=== PATIENT | male | born 1945 | race Caucasian/White ===

== ENCOUNTER 2017-06-10 21:41 | Observation (INO) | payer MEDICARE, OTHER ==
[~2017-06-10] VITALS: Ht 167.6 cm; Wt 83.2 kg
[~2017-06-10 21:41] MED LIST: ATOR40TA16 PO; GABA100C4 PO; GLIP5TAB8 PO; LEVA500T33 PO; LISI-519 PO; METF1000 PO; METO25TA3 PO; TERA2CAP3 PO
[2017-06-10 23:30] VITALS: BP 114/69; PULSE 73; RESP 20; TEMP 96.9; O2SAT 98
[2017-06-11] VITALS (10 sets, daily range): BP systolic 97–129; BP diastolic 59–78; PULSE 62–85; RESP 16–18; TEMP 97.9–98.6; O2SAT 96–100
[2017-06-11] MEDS ORDERED: SODIUM CHLORIDE FLUSH PRN IV FLUSH (00:15)
[2017-06-11] MEDS ORDERED: ONDANSETRON HCL 4 MG/2 ML VIAL IV PUSH PRN (00:15)
[2017-06-11] MEDS ORDERED: ACETAMINOPHEN 500 MG CPLT PO PRN (00:15)
[2017-06-11 00:37] LABS: TROPONIN I LESS THAN 0.02 NG/ML (0.02-0.05)
[2017-06-11] MEDS ORDERED: SODIUM CHLOR 0.9% 1000 ML INJ 1,000 ML IV SCH ×3 (08:00→16:07)
--- NOTE | 2017-06-11 08:10 | HHI.HP ---
HPI Primary Care Physician Unknown Chief Complaint Chest pain History of Present Illness This is a 72-year-old male with history of CAD with stents of the circumflex, hypertension, hyperlipidemia, and diabetes that presents to ED in [place] to be evaluated for chest discomfort and then was subsequently transferred via [facility] to the chest pain center. Describes a central chest pressure that radiates into his neck and arm that is brought on with activity lasting anywhere from a few minutes to about 20 minutes. The discomfort is relieved when he takes nitroglycerin or stopping the activity. He also has associated shortness of breath. Denies nausea or diaphoresis. States the discomfort that is brought on a similar to discomfort that has led to prior cardiac stenting. Currently denies chest discomfort. Has a psychology technician in [facility] and has an appointment end of the week. Upon reviewing her records, patient had a cardiac catheterization in 2013 revealed a 99% in-stent restenosis of the circumflex stent and had a another stent placed. Denies recent illness. Denies fevers or chills. Review of Systems General: Patient denies fevers, chills recent, and recent travel HEENT: Patient denies headache, sore throat, difficulty swallowing. Cardiovascular: Has the chest discomfort as mentioned above. Denies sensation of heart beating rapidly or irregularly. No syncope. Denies diaphoresis. Respiratory: He has been short of breath. Denies inspirational chest discomfort. Denies coughing wheezing or hemoptysis. GI: Patient denies nausea, vomiting, diarrhea, abdominal pain, bloody stools. Musculoskeletal: Patient denies joint pain or edema. Denies calf pain or edema. Neurovascular: Patient denies numbness, tingling, weakness in extremities. Denies headache. Endocrine: Denies polyuria and polydipsia. Hematologic: Denies easy bruising. Skin: Denies rash or itching. Past Family Social History Allergies: Coded Allergies: penicillin G (Unverified Allergy, Severe, Anaphylaxis, 06/10/17) Past Medical History CAD with stents. Hypertension, hyperlipidemia, and diabetes. Past Surgical History Heart catheterizations. He has had stents. Reported Medications Reported Meds & Active Scripts Active Reported Gabapentin 100 Mg Cap 100 Mg PO BID Terazosin (Terazosin HCl) 2 Mg Cap 2 Mg PO HS Metoprolol Tartrate 25 Mg Tab 25 Mg PO BID Lisinopril 5 Mg Tab 5 Mg PO DAILY Atorvastatin (Atorvastatin Calcium) 40 Mg Tab 40 Mg PO HS Glipizide 5 Mg Tab 5 Mg PO DAILY Take 30 minutes before a meal Metformin (Metformin HCl) 1,000 Mg Tab 1,000 Mg PO BIDPC Active Ordered Medications Current Medications Medications (Trade) Dose Ordered Sig/Hernan Route Start Time Stop Time Status Last Admin (Tylenol) 500 mg Q4H PRN PO 06/11/17 00:15 (Zofran Inj) 4 mg Q6H PRN IV PUSH 06/11/17 00:15 (NS Flush) 2 ml BID IV FLUSH 06/11/17 09:00 (NS Flush) 2 ml UNSCH PRN IV FLUSH 06/11/17 00:15 (Lipitor) 40 mg HS PO 06/11/17 21:00 UNV (Neurontin) 100 mg BID PO 06/11/17 09:00 UNV (Prinivil) 5 mg DAILY PO 06/11/17 09:00 UNV (Lopressor) 25 mg BID PO 06/11/17 09:00 UNV (Hytrin) 2 mg HS PO 06/11/17 21:00 UNV Family History There is family history of CAD. Social History Quit smoking in 2008. Denies alcohol or illicit drug use. Physical Exam Vital Signs Vital Signs Date Time Temp Pulse Resp B/P (MAP) Pulse Ox O2 Delivery O2 Flow Rate FiO2 06/11/17 07:45 98.6 77 16 100/61 (74) 98 06/11/17 05:00 97.9 70 16 97/59 (72) 96 06/11/17 00:00 74 06/11/17 00:00 18 06/10/17 23:30 96.9 73 20 114/69 (84) 98 Physical Exam GENERAL: This is a well-nourished, well-developed patient, in no apparent distress. Patient speaks in clear complete sentences. Patient is pleasant. HEENT: Head is atraumatic and normocephalic. Neck is supple without lymphadenopathy and trachea is midline. No JVD or carotid bruits. CARDIOVASCULAR: Regular rate and rhythm without murmurs, gallops, or rubs. RESPIRATORY: Clear to auscultation. Breath sounds equal bilaterally. No wheezes , rales, or rhonchi. Chest wall is nontender. No use of accessory muscles. GASTROINTESTINAL: Abdomen is nontender, nondistended. Abdomen soft. No obvious pulsatile mass or bruit. No CVA tenderness. Strong femoral pulses bilaterally. Normal bowel sounds in all quadrants. MUSCULOSKELETAL: Patient is moving upper and lower extremities freely. No calf tenderness or edema, no Homans sign. Strong pulses in upper and lower extremities. NEUROLOGICAL: Patient is alert and oriented. Cranial nerves 2-12 are grossly intact. No focal deficits and speech is clear. SKIN: No rash and turgor is normal. Laboratory Laboratory Tests Test 06/11/17 00:01 06/11/17 03:00 Total Creatine Kinase 130 Creatine Kinase MB 0.8 Troponin I LESS THAN 0.02 LESS THAN 0.02 Imaging Chest x-ray reveals nothing acute. Course EKGs are sinus rhythm with right bundle branch block. There are Q waves. Caprini VTE Risk Assessment Caprini VTE Risk Assessment: Mod/High Risk (score >= 2) Caprini Risk Assessment Model Point Value = 1 Point Value = 2 Point Value = 3 Point Value = 5 Age 41-60 Minor surgery BMI > 25 kg/m2 Swollen legs Varicose veins or History of unexplained or recurrent spontaneous Oral contraceptives or hormone replacement Sepsis (< 1 month) Serious lung disease, including pneumonia (< 1 month) Abnormal pulmonary function Acute myocardial infarction Congestive heart failure (< 1 month) History of inflammatory bowel disease Medical patient at bed rest Age 61-74 Arthroscopic surgery Major open surgery (> 45 min) Laparoscopic surgery (> 45 min) Malignancy Confined to bed (> 72 hours) Immobilizing plaster cast Central venous access Age >= 75 History of VTE Family history of VTE Factor V Leiden Prothrombin [id number] Lupus anticoagulant Anticardiolipin antibodies Elevated serum homocysteine Heparin-induced thrombocytopenia Other congenital or acquired thrombophilia Stroke (< 1 month) Elective arthroplasty Hip, pelvis, or leg fracture Acute spinal cord injury (< 1 month) Prophylaxis Regimen Total Risk Factor Score Risk Level Prophylaxis Regimen 0-1 Low Early ambulation 2 Moderate Order ONE of the following: *Sequential Compression Device (SCD) *Heparin 5000 units SQ BID 3-4 Higher Order ONE of the following medications: *Heparin 5000 units SQ TID *Enoxaparin/Lovenox 40 mg SQ daily (WT < 150 kg, CrCl > 30 mL/min) *Enoxaparin/Lovenox 30 mg SQ daily (WT < 150 kg, CrCl > 10-29 mL/min) *Enoxaparin/Lovenox 30 mg SQ BID (WT < 150 kg, CrCl > 30 mL/min) AND/OR *Sequential Compression Device (SCD) 5 or more Highest Order ONE of the following medications: *Heparin 5000 units SQ TID (Preferred with Epidurals) *Enoxaparin/Lovenox 40 mg SQ daily (WT < 150 kg, CrCl > 30 mL/min) *Enoxaparin/Lovenox 30 mg SQ daily (WT < 150 kg, CrCl > 10-29 mL/min) *Enoxaparin/Lovenox 30 mg SQ BID (WT < 150 kg, CrCl > 30 mL/min) AND *Sequential Compression Device (SCD) Assessment and Plan Assessment and Plan * Chest pain: Patient had serial cardiac enzymes and EKGs for ruling out purposes. He was seen by Dr. Butch Hopkins of cardiology in the chest pain center. His story is concerning for ischemia and subsequent his mission will be changed. Patient was admitted to [facility] services and a consult to Dr. Hood has been requested. I discussed this with Dr. Hood. He will be evaluating the patient shortly. Likely having cardiac catheterization but might not be today. We will resume his medications. * CAD: Patient has history of CAD with stents. This will be reevaluated likely cardiac catheterization performed by Dr. Hood. * Hypertension: Resume medication. * Hyperlipidemia: Resume medication. * Diabetes: Patient will be on sliding scale insulin coverage. Follow diabetic diet. Resume medication after discharge. Will need to hold metformin for 2 days after getting IV contrast. Patient is agreeable to this plan. Antonio Flores Jun 11, 2017 08:10
[2017-06-11] MEDS ORDERED: DEXTROSE 50% IN WATER 50 ML VIAL(D50) IV PUSH PRN (08:15)
[2017-06-11] MEDS ORDERED: GLUCAGON 1 MG/ML VIAL OTHER PRN (08:15)
--- NOTE | 2017-06-11 08:46 | HHI.PR ---
Subjective Remarks in no acute distress. no chest pain or sob. Objective Vitals Vital Signs Date Time Temp Pulse Resp B/P (MAP) Pulse Ox O2 Delivery O2 Flow Rate FiO2 06/11/17 07:45 98.6 77 16 100/61 (74) 98 06/11/17 05:00 97.9 70 16 97/59 (72) 96 06/11/17 00:00 74 06/11/17 00:00 18 06/10/17 23:30 96.9 73 20 114/69 (84) 98 Objective Remarks GENERAL: This is a well-nourished, well-developed patient, in no apparent distress. CARDIOVASCULAR: Regular rate and regular rhythm without murmurs, gallops, or rubs. RESPIRATORY: Clear to auscultation. Breath sounds equal bilaterally. No wheezes , rales, or rhonchi. GASTROINTESTINAL: Abdomen soft, non-tender, nondistended. Normal, active bowel sounds MUSCULOSKELETAL: Extremities without clubbing, cyanosis, or edema. NEURO: Alert & Oriented x4 to person, place, time, situation. Moves all ext x4 Medications and IVs Inpatient Medications Acetaminophen (Tylenol) 500 mg Q4H PRN PO HEADACHE; Start 06/11/17 at 00:15 Aspirin (Aspirin) 325 mg DAILY PO ; Start 06/11/17 at 08:00 Atorvastatin Calcium (Lipitor) 40 mg HS PO ; Start 06/11/17 at 21:00 Dextrose (D50w (Vial) Inj) 50 ml UNSCH PRN IV PUSH HYPOGLYCEMIA-SEE COMMENTS; Start 06/11/17 at 08:15 Gabapentin (Neurontin) 100 mg BID PO ; Start 06/11/17 at 09:00 Glucagon (Glucagon Inj) 1 mg UNSCH PRN OTHER HYPOGLYCEMIA-SEE COMMENTS; Start 06/11/17 at 08:15 Insulin Aspart (NovoLOG SUPPLEMENTAL SCALE) 1 ACHS SLIDING SCALE SQ ; Start at 12:00 Lisinopril (Prinivil) 5 mg DAILY PO ; Start 06/11/17 at 09:00 Metoprolol Tartrate (Lopressor) 25 mg BID PO ; Start 06/11/17 at 09:00 Ondansetron HCl (Zofran Inj) 4 mg Q6H PRN IV PUSH NAUSEA; Start 06/11/17 at 00: 15 Sodium Chloride 1,000 ml @ 100 mls/hr Q10H IV ; Start 06/11/17 at 08:00; Stop 06/11/17 at 17:59 Sodium Chloride (NS Flush) 2 ml UNSCH PRN IV FLUSH FLUSH AFTER USING IV ACCESS ; Start 06/11/17 at 00:15 Terazosin HCl (Hytrin) 2 mg HS PO ; Start 06/11/17 at 21:00 A/P Assessment and Plan A/P - chest pain with history of CAD/ stent placement serial troponin negative- continue aspirin, BB and statin- cardiology consulted. -diabetes mellitus; hold oral hypoglycemics- on accu-check with [facility]SI Discharge Planning awaiting cardiology evaluation. Shemar Meza MD Jun 11, 2017 08:46
[2017-06-11] MEDS ORDERED: diphenhydrAMINE HCL 50 MG CAP PO SCH (09:00)
[2017-06-11] MEDS: ASPIRIN 325 MG TAB PO SCH ×2 (09:00→09:47)
[2017-06-11] MEDS ORDERED: DIAZEPAM 10 MG TAB PO SCH (09:00)
[2017-06-11] MEDS: LISINOPRIL 5 MG TAB PO SCH (09:00)
[2017-06-11] MEDS ORDERED: MIDAZOLAM HCL 2 MG/2 ML VIAL IV PUSH SCH (09:00)
--- NOTE | 2017-06-11 09:13 | MB ---
cc: Garth Hood MD DATE: 06/11/2017 REASON FOR CONSULTATION: Unstable angina. HISTORY OF PRESENT ILLNESS: The patient is a 72-year-old white male with a history of coronary artery disease, status post stenting in 2010 apparently of the left circumflex with repeat stenting in 2013 of the same vessel, history of diabetes, hypertension and hyperlipidemia, who was in his usual state of health up until 1 week ago when he began to experience intermittent episodes of left-sided and substernal chest discomfort described as "pressure" associated with shortness of breath. The episodes have lasted only a few minutes. He became especially concerned last night as he had to take more than 1 sublingual nitroglycerin for relief. Since coming into the hospital he has had brief twinges. He denies pleurisy, dizziness, syncope, near syncope, palpitations, pedal edema, paroxysmal nocturnal dyspnea. The patient follows with a elevator mechanic apprentice in to [place]. PAST MEDICAL HISTORY: 1. Coronary artery disease status post stent of the left circumflex in 2010. His last heart catheterization was 04/16/2013 showing normal left main, 50-60% disease in a second diagonal, 30% mid-right coronary artery stenosis, 99% mid-left circumflex within a previously placed stent. This was restented with a 2.75 mm Resolute. 2. Diabetes. 3. Hypertension. 4. Hyperlipidemia. PAST SURGICAL HISTORY: Right ring finger surgery. CARDIAC MEDICATIONS AT HOME: 1. Terazosin 2 mg at bedtime. 2. Metoprolol tartrate 25 mg b.i.d. 3. Lisinopril 5 mg daily. 4. Atorvastatin 40 mg at bedtime. ALLERGIES: PENICILLIN. FAMILY HISTORY: Noncontributory. SOCIAL HISTORY: The patient quit smoking 10 years ago. He denies alcohol abuse. REVIEW OF SYSTEMS: As in History of Present Illness, otherwise negative or noncontributory. He also denies headache, abdominal pain, melena, dyspepsia, bright red blood per rectum, recent flu symptoms. PHYSICAL EXAMINATION: VITAL SIGNS: Blood pressure 100/60 with a pulse of 77, respirations 16. GENERAL: He is a well-developed, well-nourished white male, in no acute distress. HEENT/NECK: Jugular venous pressure is normal. Carotid pulses are 2+ bilaterally and without bruits. CHEST: Reveals clear lungs aguirre. CARDIAC: He has a regular rhythm and rate without S3, S4, or murmur. ABDOMEN: He has a soft, nontender abdomen. Bowel sounds are present. There is no definite hepatosplenomegaly. EXTREMITIES: Reveals no clubbing, cyanosis or edema. Peripheral pulses are normal throughout. LABORATORY DATA: EKG shows sinus rhythm, right bundle branch block, possible left anterior fascicular block. LABORATORY DATA: Negative cardiac enzymes. WBC 7.2, hemoglobin 12.1, platelets 213. Potassium 3.8, BUN 20, creatinine 0.80. Chest x-ray shows no acute disease. IMPRESSION: Symptoms most consistent with unstable angina in a 72-year-old white male with a history of coronary artery disease, status post percutaneous coronary interventions on the left circumflex, the last time 2013, history of diabetes, hypertension, hyperlipidemia. His symptoms clearly have been escalating in frequency in the past few days. EKG shows no diagnostic ST segment or T-wave changes. Cardiac enzymes are negative for myocardial infarction, although none of his episodes of chest discomfort have lasted more than a few minutes. Because of the instability of his symptoms, I have recommended he undergo cardiac catheterization with possible percutaneous coronary intervention, the risks of which have been explained to him including, but not limited to , myocardial infarction, stroke, arrhythmia, bleeding, infection, renal failure. He agrees to proceed. RECOMMENDATIONS: 1. Cardiac catheterization this afternoon. 2. Continue his usual home cardiac medications. 3. Check a fasting lipid profile. MD SESAR Best/JAIME , 08:54 AM , 09:12 AM DYLAN
[2017-06-11] MEDS: GABAPENTIN 100 MG CAP PO SCH ×2 (09:47→21:10)
[2017-06-11] MEDS: SODIUM CHLORIDE FLUSH BID IV FLUSH SCH ×2 (09:47→21:10)
[2017-06-11] MEDS: METOPROLOL TARTRATE 25 MG TAB PO SCH ×2 (09:47→21:10)
[2017-06-11] MEDS: INSULIN ASPART SUPPLEMENTAL SCALE SQ SCH ×2 (12:00→21:00)
--- NOTE | 2017-06-11 12:43 | EKG ---
Date Performed: 06/11/2017 Time Performed: 00:16:16 PTAGE: 72 years EKG: Sinus rhythm RIGHT BUNDLE BRANCH BLOCK LEFT ANTERIOR FASCICULAR BLOCK ABNORMAL ECG PREVIOUS TRACING : 04/17/2013 04.58 Since previous tracing, no significant change noted DOCTOR: Butch Hopkins Interpretating Date/Time 06/11/2017 12:42:48
--- NOTE | 2017-06-11 12:45 | EKG ---
Date Performed: 06/11/2017 Time Performed: 02:48:45 PTAGE: 72 years EKG: Sinus rhythm RIGHT BUNDLE BRANCH BLOCK LEFT ANTERIOR FASCICULAR BLOCK ABNORMAL ECG PREVIOUS TRACING : 06/11/2017 00.16 Since previous tracing, no significant change noted DOCTOR: Butch Hopkins Interpretating Date/Time 06/11/2017 12:43:50
[2017-06-11] MEDS ORDERED: HEPARIN-NS/PF FLUSH BAG 2,000 ML IV FLUSH ONE (13:59)
[2017-06-11] MEDS ORDERED: NITROGLYCERIN INJ 5 ML ONE (14:53)
[2017-06-11] MEDS ORDERED: VERAPAMIL HCL 5 MG/2 ML VIAL ONE (14:53)
[2017-06-11] MEDS ORDERED: HEPARIN SODIUM - IV 10,000 UNITS/10 ML VIAL ONE (14:53)
[2017-06-11] MEDS ORDERED: LIDOCAINE HCL 1% PF 30 ML VIAL ONE (14:53)
[2017-06-11] MEDS ORDERED: MIDAZOLAM HCL 2 MG/2 ML VIAL ONE (14:53)
[2017-06-11] MEDS ORDERED: TIROFIBAN INFUSION INJ 250 ML IV ONE (15:31)
[2017-06-11] MEDS: TIROFIBAN INFUSION INJ 250 ML IV SCH (15:41)
[2017-06-11] MEDS ORDERED: TICAGRELOR 90 MG TAB PO ONE (15:51)
--- NOTE | 2017-06-11 16:08 | CATHPROC ---
[employer] HIS Report Study Information Study Number Admission Scheduled Start Study Start [id number] Jun 10 2017 11:12PM 06/11/2017 Jun 11 2017 2:38PM [place] Service Cardiac Catheterization Admit Source Facility Department Emergency department [facility] - Drilling Engineer Physician and Clinical Staff Initial Garth Jeff Aeronautical Project Engineer Nimo Sapp,RN Aeronautical Project Engineer Alex VILLANUEVA, Riley Recorder Elise Jain,CRUSHER FOREMAN TECH2 Scrub Aniket Gross,RT(R) Procedures Performed Procedure Location (Site) Vessel Name Coronary Angiograms LCA Left Coronary Coronary Angiograms RCA Right Coronary Drug Eluting Inflatio RCA Dist Right Coronary L Heart Cath LV Gram-hand inj. LV LV Ventricle PTCA RCA Dist Right Coronary Wire insertion Radial (right) Radial Art. Equipment Time Upper Cutter Description Size Mfg Part Number Used/Scraped [id number] 15:24 [employer] WIRE, ASAHI PROWATER 180CM 180CM Used *[id number] WIRE, BALANCE MIDDLEWEIGHT [id number] 15:30 [employer] 190CM Used 190CM (JALEEL) *[id number] TRANSDUCER, TRUWAVE [id number] 14:38 MUSTAFA JENKINS * Used W/STOCKCOCK *[id number] SDN-21-2.5 14:59 [employer] NEEDLE, PERCUTANEOUS ENTRY 21G X 2.5CM Used *[id number] *[id number] *[id number] 14:38 MALLINCKRODT SYRINGE, ANGIOMAT 150ML 150ML *[id number] Used 2SUB MEDICAL CONCEPT DRAPE, RADIAL FEMORAL FULL 14:38 * [id number] *[id number] Used DEVELOPMENT BODY [id number] 14:38 [employer] PACK, CCL CUSTOM * Used *[id number] 14:38 [employer] SUPPORT, ARTERIAL ADULT 33052 *[id number] Used [id number] 14:38 MEDLINE PACER PEN, SKIN DUAL W/ RULER * Used *[id number] 15:41 MED[employer]ON[employer] BALLOON, 2.5 X 15MM EUPHORA 15MM Used *[id number] 15:34 [employer] BALLOON, 2.5 X 6MM EUPHORA 6MM Used *[id number] 15:46 [employer] STENT, 2.5 18MM KARIN 2.5 18MM Used *[id number] [id number] 15:37 [employer] 30 OLGA INDEFLATOR Used *[id number] BAND, RADIAL COMPRESSION TR [id number] 16:06 [facility] 24CM Used SHORT 24 *[id number] SHEATH, FR6 RADIAL PRELUDE 14:38 [facility] FR 6 [id number] Used EASE 11CM SHEATH, FR6 RADIAL PRELUDE 14:59 [facility] FR 6 [id number] Used EASE 11CM [id number] 14:[address] [facility] [employer] WIRE, EXCHANGE 260CM 3MMJ 260CM Used *[id number] 14:38 NAMIC MANIFOLD, 4 PORT * Used *1935126 14:38 [employer] OMNIPAQUE, 350 MG, 150ML 150ML [id number] Used [id number] 14:38 [employer],WARM AIR CCL * Used *[id number] CATHETER, FR5 OPTITORQUE [id number] 14:58 [employer] FR 5 Used RADIAL TIG 4.0 *[id number] Equipment Model, Serial, Lot Number and Expiration Data Description Model Number Serial Number Lot Number Expiration Date STENT, 2.5 18MM KARIN [id number] 12-19-2018 History: Current Medications Medication Dosage/Unit Route Frequency Last Date/Time Taken LISINOPRIL Neurontin Statins (any) Glypizide Glucophage History: Allergies Allergy Reaction penicillin G Anaphylaxis History: Risk Factors Family History of Hypertension Dyslipidemia Previous AL Previous Heart Failure Premature CAD Yes Yes No No No Prior Valve Prior PCI Prior PCIDate Prior CABG Surgery No Yes 02/19/2013 No Cerebrovascular Peripheral Artery Chronic Lung On Dialysis Diabetes Diabetes Therapy Disease Disease Disease No No No No Yes Oral History: Symptoms/Diagnosis Selection Items Chest pain History: AL/CV Data Previous Cath Date 02/19/2013 History: Other Current Smoker Method Quit Packs a Day Years Used Pack Years No Cigarettes 9 Years Ago 1 40 40 Labs Hgb (g/dl) Hct (%) RBC (MIL/MM3) WBC (l/cumm) Platelets (thousands) 11.60-17.00 35.00-51.00 4.00-5.90 4.00-11.00 150.00-450.00 12.1 35.4 3.9 7.2 213 Glucose (mg/dl) BUN (mg/dl) Creatinine (mg/dl) BUN:Creatinine (1:x) 74.00-106.00 7.00-18.00 0.50-1.30 10.00-20.00 204 5 0.8 6.3 Na (meq/l) K (meq/l) Cl (meq/l) CO2 (mmol/L) Ca (mg/dl) 136.00-145.00 3.50-5.10 98.00-107.00 21.00-32.00 8.50-10.10 141 3.8 106 30 8.6 PT (sec) PTT (sec) INR (PTT:PT) 9.80-11.60 24.30-30.10 0.90-1.10 0.9 24.4 0.9 Troponin I (ng/ml) CPK-MB (ng/ML) 0.02-0.05 0.50-3.60 0.02 1.2 Medication Medication Total Dose (Bolus/Oral) Medication Total Dosage/Unit 1% XYLOCAINE 5 mL AGGRASTAT BOLUS 42 meq/kg BRILINTA 180 mg FENTANYL 100 mcg HEPARIN 2500 units NTG (IC) 150 mcg RADIAL COCKTAIL 5 mL (Bolus) VERSED 2 mg Medications (Bolus/Oral) Medication Time Given Dosage/Unit Administered By Reason VERSED 06/11/2017 3:12:03 PM 2 mg Nimo Sapp 2 mg VERSED given in lab by Nimo Sapp, KAY in Right Antecubital via Peripheral IV. Ordered by Garth Edwards. 1% XYLOCAINE 06/11/2017 3:12:12 PM 5 mL Garth Hood 5 mL 1% XYLOCAINE given in lab by Garth Hood in Right Radial via Subcutaneous. Ordered by Rob Hood enn. Ntg 200mcg Verapamil 2.5mg Heparin RADIAL COCKTAIL 06/11/2017 3:14:10 PM 5 mL (Bolus) Garth Hood 2500U 5 mL (Bolus) RADIAL COCKTAIL given in lab by Garth Hood in Right Radial via Radial. Using [Solution Name]. Ordered by Garht Hood. Reason: Ntg 200mcg Verapamil 2.5mg Heparin 2500U. HEPARIN 06/11/2017 3:26:25 PM 2500 units Nimo Sapp 2500 units HEPARIN given in lab by Nimo Sapp, KAY in Right Antecubital via Peripheral IV. Ordere d by Garth Hood. FENTANYL 06/11/2017 3:35:55 PM 50 mcg Riley Johnson RN 50 mcg FENTANYL given in lab by Riley Johnson RN in Right Antecubital via Peripheral IV. Ordered by Garth Edwards. NTG (IC) 06/11/2017 3:38:37 PM 50 mcg Garth Hood 50 mcg NTG (IC) given in lab by Garth Hood in Right Radial via Intra-coronary. Ordered by Rob Hood enn. AGGRASTAT BOLUS 06/11/2017 3:41:00 PM 42 meq/kg Nimo Sapp 42 meq/kg AGGRASTAT BOLUS given in lab by Nimo Sapp RN in Right Antecubital via Peripheral IV. Amount given = 3376.8 meq. Ordered by Garth Hood. NTG (IC) 06/11/2017 3:45:39 PM 100 mcg Garth Hood 100 mcg NTG (IC) given in lab by Garth Hood in Right Radial via Intra-coronary. Ordered by Bree Hood. BRILINTA 06/11/2017 3:50:48 PM 180 mg Nimo Sapp 180 mg BRILINTA given in lab by Nimo Sapp, KAY. Ordered by Garth Hood. FENTANYL 06/11/2017 4:07:38 PM 50 mcg Riley Johnson RN 50 mcg FENTANYL given in lab by Riley Johnson RN in Right Antecubital via Peripheral IV. Ordered by Garth Edwards. Medication (Drip) Medication Time Given Dosage/Unit Concentration/Unit Diluent (ml) Solution AGGRASTAT DRIP 06/11/2017 3:43:28 PM 0.15 mcg/kg/min 12.5 mg 250 NaCl .9 0.15 mcg/kg/min AGGRASTAT DRIP given in lab by Nimo Sapp RN in Right Antecubital via Periphera l IV. Pump/Drip Flow = 14.47 ml/hr using NaCl .9 with a concentration of 12.5 mg in 250 ml. Ordered by Garth Hood. IV Solutions 06/11/2017 2:54:38 PM 0 mL (IV) 500 NaCl .9 IV Solutions given in lab by Nimo Sapp, KAY in Right Antecubital via Peripheral IV. Pump/Drip Fl ow = 20 ml/hr using NaCl .9. Ordered by Garth Hood. Initial Case Assessment Cardiovascular HR NIBP 68 132/76 Edema Present Skin color Skin None Normal Warm Dry Circulatory - Right Pulses Dorsalis Pedis Femoral Radial 2 3 3 Scale (0,1,2,3,4,d) Circulatory - Left Pulses Dorsalis Pedis Femoral Radial 2 3 Scale (0,1,2,3,4,d) Neurological State Oriented to time-place- Alert Moves all extremities person Respiration - General Respiration Rate SpO2 (%) (B/min) 15 98 Final Case Assessment Cardiovascular HR NIBP Chest Pain 57 113/63 6 Edema Present Skin color Skin None Normal Warm Dry Circulatory - Right Pulses Dorsalis Pedis Femoral Radial 2 3 3 Scale (0,1,2,3,4,d) Circulatory - Left Pulses Dorsalis Pedis Femoral Radial 2 3 Scale (0,1,2,3,4,d) Neurological State Oriented to time-place- Alert Moves all extremities person Respiration - General Respiration Rate SpO2 (%) (B/min) 12 93 Chronological Log Time Study Chronological Log 14:39:44 Patient arrived via Bed. 14:39:45 Patient Name, D.O.B, / Armband Verified By R.N. 14:39:46 Consent signed by the physician and the patient and verified by the Drilling Engineer staff. 14:39:47 Pre-op and post- op instructions given; patient acknowledges understanding of instructions. Vitals capture started with the following parameters, Patient=Adult, Interval=5 min, Initial Pr svcwvf=803 mmHg, 14:45:03 Deflation Rate=5 mmHg, Cuff placed on Left Arm 14:46:13 HR=68 bpm, LWMR=848/76 mmhg, SpO2=98.0 %, Resp=15 B/min, Pain=0, Shayy=10, Em=2 Assessment: Initial Case, HR=68 BPM, CCGQ=537/76 mmhg, Edema=None, Color=Normal, Skin = Warm, D ry Right Pulses: Parth Ped=2, Femoral=3, Radial=3 14:46:40 Left Pulses: Parth Ped=2, Femoral=3 Neurological: State=Alert, Ox3, PAZ Respiration: Resp=15 B/min, SpO2=98 % 14:50:41 HR=62 bpm, EFRG=322/76 mmhg, SpO2=97.0 %, Resp=16 B/min, Pain=0, Shayy=10, Em=2 14:54:26 Reference ECG taken 14:54:31 Patient has been NPO for More than 6Hrs. 14:54:32 NO Skin Breakdown- 14:54:33 Patient Warmer Placed on the Table. 14:54:34 Geovanny Prominences Protected 14:54:37 A # 20 IV was noted in the Antecubital (right). Grade = 0 IV Solutions given in lab by Nimo Sapp, RN in Right Antecubital via Peripheral IV. Pump/D rip Flow = 20 ml/hr 14:54:38 using NaCl .9. Ordered by Garth Hood. 14:54:39 History and physical on the chart or being dictated. 14:55:40 HR=64 bpm, YMPK=664/76 mmhg, SpO2=98.0 %, Resp=16 B/min, Pain=0, Shayy=10, Em=2 14:56:37 Right Radial and groin(s) prepped with 2% chlorhexidine, and draped after a 3 min. waiting time. 15:00:41 HR=60 bpm, KZUX=751/73 mmhg, SpO2=98.0 %, Resp=17 B/min, Pain=0, Shayy=10, Em=2 15:03:31 Pressure channel 1 zeroed. 15:05:40 HR=62 bpm, KHJC=868/75 mmhg, SpO2=95.0 %, Resp=17 B/min, Pain=0, Shayy=10, Em=2 15:10:39 HR=60 bpm, KFCE=476/71 mmhg, SpO2=98.0 %, Resp=14 B/min, Pain=0, Shayy=10, Em=2 Time Out. Correct patient, correct procedure, correct physician, power injector loaded with con trast with surgical team 15:11:37 present. Time Out Concurred by MD and individual staff in procedure. 15:12:03 2 mg VERSED given in lab by Nimo Sapp, RN in Right Antecubital via Peripheral IV. Ord ered by Garth Hood. 15:12:10 Case Start 15:12:12 5 mL 1% XYLOCAINE given in lab by Garth Hood in Right Radial via Subcutaneous. Ordered by Garth Hood. 15:13:41 Access site was Radial Artery. A SHEATH, FR6 RADIAL PRELUDE EASE 11CM FR 6 was advanced into the Radial (right) using the Remi fied Seldinger 15:13:57 technique. 5 mL (Bolus) RADIAL COCKTAIL given in lab by Garth Hood in Right Radial via Radial. Using [So lution Name]. Ordered 15:14:10 by Garth Hood. Reason: Ntg 200mcg Verapamil 2.5mg Heparin 2500U. A CATHETER, FR5 OPTITORQUE RADIAL TIG 4.0 FR 5 was advanced over a wire. OMNIPAQUE, 350 MG, 150 ML 150ML 15:14:54 was used for injections. 15:15:43 HR=76 bpm, YQFR=071/65 mmhg, SpO2=95.0 %, Resp=14 B/min, Pain=0, Shayy=10, Em=2 15:16:25 The LCA was injected and visualized at various angles. OMNIPAQUE, 350 MG, 150ML 150ML used . Recorded Pressure: Ao, HR=71, Condition=Condition 1 15:16:42 (Aorta) Ao 86/52/68 Recorded Pressure: LV, HR=92, Condition=Condition 1 15:18:41 (Left Ventricle) LV 89/8/10 15:19:56 The RCA was injected and visualized at various angles. OMNIPAQUE, 350 MG, 150ML 150ML used . 15:20:26 Catheter was removed 15:20:38 HR=82 bpm, QQMU=055/73 mmhg, SpO2=96 %, Resp=15 B/min, Pain=0, Shayy=10, Em=2 A HS SH GUIDE CATHETER FR 6 was advanced over a wire. OMNIPAQUE, 350 MG, 150ML 150ML was used f or 15:23:37 injections. 15:25:23 A WIRE, [employer] PROWATER 180CM 180CM was inserted via Radial (right). 15:25:45 HR=68 bpm, WFFV=741/62 mmhg, SpO2=97 %, Resp=18 B/min, Pain=0, Shayy=10, Em=2 2500 units HEPARIN given in lab by Nimo Sapp RN in Right Antecubital via Peripheral IV. Ordered by Sana 15:: Garth. 15:29:39 Interventional wire has crossed the lesion 15:29:54 A WIRE, BALANCE MIDDLEWEIGHT 190CM (JALEEL) 190CM was inserted via Radial (right). 15:31:19 HR=67 bpm, WRUC=992/74 mmhg, SpO2=96.0 %, Resp=20 B/min, Pain=0, Shayy=10, Em=2 15:33:52 Activated Clotting Time Drawn 15:35:18 A BALLOON, 2.5 X 6MM EUPHORA 6MM was inserted over WIRE, ASAHI PROWATER 180CM 180CM via the RCA Dist. 15:35:43 HR=63 bpm, REJZ=537/78 mmhg, SpO2=97.0 %, Resp=13 B/min, Pain=0, Shayy=10, Em=2 15:35:55 50 mcg FENTANYL given in lab by Riley Johnson RN in Right Antecubital via Peripheral IV. Ord ered by Garth Hood. A BALLOON, 2.5 X 6MM EUPHORA 6MM over a WIRE, ASAHI PROWATER 180CM 180CM in the RCA Dist was in flated 15:36:32 using a 30 OLGA INDEFLATOR at 8 olga for 16 sec. A BALLOON, 2.5 X 6MM EUPHORA 6MM over a WIRE, ASAHI PROWATER 180CM 180CM in the RCA Dist was in flated 15:37:03 using a 30 OLGA INDEFLATOR at 8 olga for 15 sec. 15:38:03 Balloon Removed. 15:38:37 50 mcg NTG (IC) given in lab by Garth Hood in Right Radial via Intra-coronary. Ordered by Garth Hood. 15:39:47 ACT (Normal Range 90-180) = 334 15:40:48 HR=55 bpm, JIPJ=041/63 mmhg, SpO2=93.0 %, Resp=14 B/min, Pain=0, Shayy=10, Em=2 42 meq/kg AGGRASTAT BOLUS given in lab by Nimo Sapp RN in Right Antecubital via Peripher al IV. Amount given 15:41:00 = 3376.8 meq. Ordered by Garth Hood. 15:42:16 A BALLOON, 2.5 X 15MM EUPHORA 15MM was inserted over WIRE, ASAHI PROWATER 180CM 180CM via t he RCA Dist. A BALLOON, 2.5 X 15MM EUPHORA 15MM over a WIRE, ASAHI PROWATER 180CM 180CM in the RCA Dist was inflated 15:43:13 using a 30 OLGA INDEFLATOR at 8 olga for 30 sec. 0.15 mcg/kg/min AGGRASTAT DRIP given in lab by Nimo Sapp, RN in Right Antecubital via Per ipheral IV. 15:43:28 Pump/Drip Flow = 14.47 ml/hr using NaCl .9 with a concentration of 12.5 mg in 250 ml. Ordered b y Garth Hood. 15:44:30 Balloon Removed. 15:45:05 BMW Wire removed A STENT, 2.5 18MM KARIN 2.5 18MM was advanced through a HS SH GUIDE CATHETER FR 6 over a WIRE, A CRICKET 15:45:20 PROWATER 180CM 180CM. 15:45:39 100 mcg NTG (IC) given in lab by Garth Hood in Right Radial via Intra-coronary. Ordered b y Garth Hood. 15:45:41 HR=57 bpm, HFHH=237/71 mmhg, SpO2=89.0 %, Resp=16 B/min, Pain=0, Shayy=10, Em=2 A STENT, 2.5 18MM KARIN 2.5 18MM was deployed using a 30 OLGA INDEFLATOR at 13 atmospheres for 35 seconds in 15:47:09 the RCA Dist. 15:48:11 Delivery device removed 15:49:00 Wire removed After removing the current catheter a MPA-2 INFINITI CATHETER FR 6 was advanced over a WIRE, EX CHANGE 260CM 15:49:19 3MMJ 260CM. 15:50:48 HR=59 bpm, SWSL=446/54 mmhg, SpO2=91.0 %, Resp=17 B/min, Pain=0, Shayy=10, Em=2 15:50:48 180 mg BRILINTA given in lab by Nimo Sapp, RN. Ordered by Garth Hood. Recorded Pressure: LV, HR=36, Condition=Condition 1 15:51:07 (Left Ventricle) LV 108/7/12 Recorded Pressure: LV, Ao, HR=60, Condition=Condition 1 15:51:20 (Left Ventricle) LV 107/1/12, (Aorta) Ao 108/52/75 15:51:20 The LV was manually injected with 10 cc's and visualized. OMNIPAQUE, 350 MG, 150ML 150ML us ed. 15:51:32 Catheter was removed 15:51:36 Case End PCI QA completed: Pre-Emmanuel - 3, Post Emmanuel - 3, Type - C, Length - 15 mm, Morphology - Atypical, Indications - Lesion > 15:52:48 50 non-stem, Pre-Stenosis - 95% and Post Stenosis - 0%. 15:52:49 PCI QA obtained from Flatbed Owner Operator 15:55:49 HR=57 bpm, GMUK=337/63 mmhg, SpO2=93.0 %, Resp=12 B/min, Pain=0, Shayy=10, Em=2 16:00:31 Vitals capture stopped. Assessment: Final Case, HR=57 BPM, USWY=265/63 mmhg, Chest Pain=6, Edema=None, Color=Normal, Sk in = Warm, Dry Right Pulses: Parth Ped=2, Femoral=3, Radial=3 16:00:47 Left Pulses: Parth Ped=2, Femoral=3 Neurological: State=Alert, Ox3, PAZ Respiration: Resp=12 B/min, SpO2=93 % 16:05:43 Catheter(s) removed without difficulty Radial Compression Device Used. 12 mLs of air placed in BAND, RADIAL COMPRESSION TR SHORT 24 24 CM. Affected 16:05:46 hand 96 % O2 saturation. 16:06:18 No case complications noted. 16:06:20 Cine recording checked. 16:06:23 Bedside Report will be given. 16:06:25 Implantable Device card placed in patient's chart. 16:06:28 A Left Heart Cath was performed. 16:06:29 Patient moved to [facility] 16:07:38 50 mcg FENTANYL given in lab by Riley Johnson RN in Right Antecubital via Peripheral IV. Or dered by Garth Hood. End Study - Contrast Media Used In Study Contrast Total Opened (mL) Total Used (mL) Total Wasted (mL) Omnipaque 160 160 0 End Study - Maximum Contrast Load Max Contrast Load (mL) 502.6 End Study - Radiation Exposure Fluoro Time (minutes) 12.3 End Study - Patient Disposition Complications Transferred To Interventional Outcome No Regular Bed successful
[2017-06-11] MEDS ORDERED: TEMAZEPAM 15 MG CAP PO PRN (16:15)
--- NOTE | 2017-06-11 17:04 | MA ---
cc: Garth Hood MD DATE: 06/11/2017 PROCEDURE: Left heart catheterization, selective coronary angiography, left ventriculography, angioplasty and stent of the distal right coronary artery. PROCEDURE NOTES: The patient was brought to the cardiac catheterization laboratory in a fasting state after having signed informed consent. The right radial region was prepped and draped as per policy and anesthetized with 1% lidocaine. Arterial access was obtained via the right radial artery and a 6-Maldivian sheath placed. Coronary arteriography was performed using a [place] catheter. Left ventriculography was done using a multipurpose catheter. Percutaneous coronary intervention was done as described below. There were no apparent, immediate complications. A radial artery compression band was applied to his right wrist at the end of the case to achieve good hemostasis. HEMODYNAMIC DATA: Left ventricle 107 with an end-diastolic pressure of 12. Aorta 108/52 with a mean of 75. There was no significant transvalvular aortic gradient on pullback of the pigtail catheter. CORONARY ARTERIOGRAPHY: The left main may have up to 10-15% distal stenosis. The left anterior descending gives rise to a very small first diagonal and medium-sized branching second diagonal. The second diagonal has a somewhat eccentric 50-70% stenosis proximally prior to its bifurcation. Most evident on the NATALIA cranial view, the proximal LAD may taper down to a 50% stenosis. The mid-LAD has 25% concentric stenosis. The distal LAD has minimal luminal irregularities. The left circumflex is a small vessel giving rise to a large branching obtuse marginal, which has 2 stents evident in its mid-portion. The stents are widely patent. The ostial to proximal portion of this obtuse marginal has diffuse up to 20% disease. The rest of the left circumflex has minimal luminal irregularities. The right coronary artery is a medium-sized dominant vessel with a 95% discrete stenosis right before the takeoff of the posterior descending artery which is free of disease. The proximal right coronary also has up to 40% stenosis. The mid-right coronary has up to 20% disease. LEFT VENTRICULOGRAPHY: Contrast injection of the left ventricle reveals no segmental wall motion abnormalities. Ejection fraction is estimated at 70%. PERCUTANEOUS CORONARY INTERVENTION DESCRIPTION: Adequate heparin was given to achieve an ACT of greater than 250 seconds. Aggrastat was given as per protocol. Using a 6-Maldivian hockey stick guiding catheter with side holes the ostium of the right coronary artery was reengaged. Using a 0.014 Prowater Guidewire the distal disease was crossed without difficulty and the tip of the wire positioned distally. A balanced middleweight guidewire was also placed in the posterior descending artery. A balloon inflation using a 2.5 x 6 mm Euphora was done at the site of the lesion twice. Angiography at this point shows more severe stenosis in the right coronary just past the takeoff of the posterior descending artery, and the angiographic appearance of this area does not change with intracoronary nitroglycerin. In addition, a linear dissection is evident at the site of the original lesion. Additional predilation was done using a 2.5 x 15 mm Euphora balloon catheter. Stenting was then done using a 2.5 x 18 mm Resolute [place] stent which was deployed at 13 atmospheres for 35 seconds. Final angiography shows overall good results with reduction of the initial stenosis to 0% residual with no definite evidence for dissection or distal embolization. The patient overall tolerated the procedure well. There were no apparent, immediate complications. CONCLUSIONS: 1. Moderate to severe two vessel coronary artery disease. 2. Right dominant system. 3. Status post angioplasty and stent of the distal right coronary artery. 4. Normal left ventricular function with estimated ejection fraction of 70 percent. DISCUSSION: The patient's second diagonal disease will be treated medically. Should he have recurrent angina in the future, consideration could be made towards stenting of the proximal second diagonal. MD SESAR Best/JAIME , 04:02 PM , 05:03 PM DYLAN
[2017-06-11] MEDS ORDERED: ATORVASTATIN 40 MG TAB PO SCH (21:00)
[2017-06-11] MEDS ORDERED: TERAZOSIN HCL 1 MG CAP PO SCH (21:00)
[2017-06-12] VITALS (13 sets, daily range): BP systolic 107–131; BP diastolic 65–81; PULSE 61–94; RESP 18; TEMP 97.6–98.1; O2SAT 94–100
[2017-06-12] MEDS: TIROFIBAN INFUSION INJ 250 ML IV SCH (06:15)
[2017-06-12 06:32] LABS: AUTOMATED NEUTROPHIL # 5.9 TH/MM3 (1.8-7.7); BASOPHIL % 0.4 % (0.0-2.0); EOSINOPHIL # 0.1 TH/MM3 (0-0.4); EOSINOPHIL % 1.4 % (0.0-4.0); HEMATOCRIT 38.7 % (39.0-51.0); HEMOGLOBIN 13.3 GM/DL (13.0-17.0); LYMPH % 24.1 % (9.0-44.0); LYMPHOCYTE # 2.1 TH/MM3 (1.0-4.8); MEAN CELL VOLUME 89.6 FL (80.0-100.0); MEAN CORPUSCULAR HEMOGLOBIN 30.9 PG (27.0-34.0); MEAN CORPUSCULAR HGB CONC 34.4 % (32.0-36.0); MEAN PLATELET VOLUME 7.9 FL (7.0-11.0); MONO % 5.8 % (0.0-8.0); MONOCYTE # 0.5 TH/MM3 (0-0.9); NEUT % 68.3 % (16.0-70.0); PLATELET COUNT 236 TH/MM3 (150-450); RED BLOOD COUNT 4.32 MIL/MM3 (4.50-5.90); RED CELL DISTRIBUTION WIDTH 13.6 % (11.6-17.2); WHITE BLOOD COUNT 8.6 TH/MM3 (4.0-11.0)
[2017-06-12 06:33] LABS: BICARBONATE 26.3 MEQ/L (21.0-32.0); CALCIUM 8.6 MG/DL (8.5-10.1); CREATININE 0.81 MG/DL (0.60-1.30)
[2017-06-12 06:36] LABS: CHOLESTEROL/ HDL RATIO 2.95 RATIO; HDL CHOLESTEROL 29.8 MG/DL (40.0-60.0)
--- NOTE | 2017-06-12 07:48 | PD.CARD.PN ---
Subjective Subjective Remarks Denies CP, wrist pain, dyspnea, dizziness. Objective Medications Item Value Date Time Aspirin 81 mg 06/12/17 09 (Aspirin Chew) DAILY/PO Ticagrelor 90 mg 06/12/17899 (Brilinta) BID/PO Atorvastatin 40 mg 06/11/172099 Calcium HS/PO 06/11/172109 (Lipitor) Terazosin HCl 2 mg 06/11/172099 (Hytrin) HS/PO 06/11/172109 Tirofiban/Sodium 250 ml @ 14.472 mls/hr 06/11/17 1607 Chloride .[id number]/IV 06/12/17 0615 Lisinopril 5 mg 06/11/17899 (Prinivil) DAILY/PO Metoprolol 25 mg 06/11/17899 Tartrate BID/PO 06/11/172109 (Lopressor) Current Medications Medications (Trade) Dose Ordered Sig/Hernan Route Start Time Stop Time Status Last Admin (Tylenol) 500 mg Q4H PRN PO 06/11/17 00:15 (Zofran Inj) 4 mg Q6H PRN IV PUSH 06/11/17 00:15 (NS Flush) 2 ml BID IV FLUSH 06/11/17 09:00 06/11/17 21:10 (NS Flush) 2 ml UNSCH PRN IV FLUSH 06/11/17 00:15 (Lipitor) 40 mg HS PO 06/11/17 21:00 06/11/17 21:10 (Neurontin) 100 mg BID PO 06/11/17 09:00 06/11/17 21:10 (Prinivil) 5 mg DAILY PO 06/11/17 09:00 (Lopressor) 25 mg BID PO 06/11/17 09:00 06/11/17 21:10 (Hytrin) 2 mg HS PO 06/11/17 21:00 06/11/17 21:10 (D50w (Vial) Inj) 50 ml UNSCH PRN IV PUSH 06/11/17 08:15 (Glucagon Inj) 1 mg UNSCH PRN OTHER 06/11/17 08:15 (NovoLOG SUPPLEMENTAL SCALE) 1 ACHS SLIDING SCALE SQ 06/11/17 12:00 Sodium Chloride 1,000 ml @ 100 mls/hr Q10H IV 06/11/17 08:48 06/16/17 08:47 06/11/17 09:47 (Benadryl) 50 mg BOW MAKER GIFT WRAPPING PO 06/11/17 09:00 06/15/17 08:59 (Valium) 10 mg BOW MAKER GIFT WRAPPING PO 06/11/17 09:00 06/15/17 08:59 (Versed Inj) 1 mg BOW MAKER GIFT WRAPPING IV PUSH 06/11/17 09:00 06/15/17 08:59 (Restoril) 15 mg HS PRN PO 06/11/17 16:15 (Aspirin Chew) 81 mg DAILY PO 06/12/17 09:00 (Brilinta) 90 mg BID PO 06/12/17 09:00 Tirofiban/Sodium Chloride 250 ml @ 14.472 mls/ hr [id number] IV 06/11/17 16:07 06/12/17 10:06 06/12/17 06:15 Vital Signs / I&O Vital Signs Date Time Temp Pulse Resp B/P (MAP) Pulse Ox O2 Delivery O2 Flow Rate FiO2 06/12/17 06:00 73 06/12/17 05:00 80 06/12/17 04:10 83 06/12/17 03:02 98.1 77 18 119/73 (88) 100 06/12/17 03:02 73 06/12/17 02:04 70 06/12/17 01:00 69 06/12/17 00:00 97.9 73 18 131/79 (96) 100 06/12/17 00:00 68 06/11/17 23:00 70 06/11/17 22:00 75 06/11/17 21:00 77 06/11/17 20:00 85 06/11/17 20:00 98.0 85 18 129/78 (95) 100 06/11/17 19:00 85 06/11/17 16:32 96 Room Air 06/11/17 16:17 97 Room Air 06/11/17 12:59 98.2 62 16 115/70 (85) 97 06/11/17 07:45 98.6 77 16 100/61 (74) 98 I/O 06/11/17 06/11/17 06/11/17 06/12/17 06/12/17 06/12/17 07:00 15:00 23:00 07:00 15:00 23:00 Intake Total 400 ml 240 ml Output Total 1675 ml Balance 400 ml -1435 ml Intake Oral 240 ml IV Total 400 ml Output Urine Total 1675 ml # Voids 2 6 Physical Exam GENERAL: Well developed, well nourished. No acute distress. HEENT: Jugular venous pressure is normal. CHEST: Lungs clear to auscultation anteriorly. CARDIAC: Regular rate and rhythm without S3, S4, or murmur. ABDOMEN: Soft, nontender, no hepatosplenomegaly. Bowel sounds present. EXTREMITIES: No clubbing, cyanosis, or edema. Right radial arteriotomy site stable, normal pulse. Laboratory Laboratory Tests Test 06/12/17 04:49 White Blood Count 8.6 TH/MM3 Red Blood Count 4.32 MIL/MM3 Hemoglobin 13.3 GM/DL Hematocrit 38.7 % Mean Corpuscular Volume 89.6 FL Mean Corpuscular Hemoglobin 30.9 PG Mean Corpuscular Hemoglobin Concent 34.4 % Red Cell Distribution Width 13.6 % Platelet Count 236 TH/MM3 Mean Platelet Volume 7.9 FL Neutrophils (%) (Auto) 68.3 % Lymphocytes (%) (Auto) 24.1 % Monocytes (%) (Auto) 5.8 % Eosinophils (%) (Auto) 1.4 % Basophils (%) (Auto) 0.4 % Neutrophils # (Auto) 5.9 TH/MM3 Lymphocytes # (Auto) 2.1 TH/MM3 Monocytes # (Auto) 0.5 TH/MM3 Eosinophils # (Auto) 0.1 TH/MM3 Basophils # (Auto) 0.0 TH/MM3 CBC Comment DIFF FINAL Differential Comment Blood Urea Nitrogen 14 MG/DL Creatinine 0.81 MG/DL Random Glucose 109 MG/DL Calcium Level 8.6 MG/DL Sodium Level 142 MEQ/L Potassium Level 3.8 MEQ/L Chloride Level 107 MEQ/L Carbon Dioxide Level 26.3 MEQ/L Anion Gap 9 MEQ/L Estimat Glomerular Filtration Rate 94 ML/MIN Total Creatine Kinase 120 U/L Triglycerides Level 100 MG/DL Cholesterol Level 88 MG/DL LDL Cholesterol 38 MG/DL HDL Cholesterol 29.8 MG/DL Cholesterol/HDL Ratio 2.95 RATIO Assessment and Plan Problem List: (1) CAD (coronary artery disease) ICD Codes: I25.10 - CAD (coronary artery disease) Status: Chronic Plan: Stable s/p stent of distal RCA yesterday. No further angina. Right radial arteriotomy site OK. AM labs OK. REC discharge today same home medications plus Brilinta 90 mg bid. 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 (2) HTN (hypertension) ICD Codes: I10 - HTN (hypertension) Status: Chronic Plan: Stable. Mostly normotensive. Continue same. (3) Hyperlipidemia ICD Codes: E78.5 - Hyperlipidemia Status: Chronic Plan: Good lipid profile on atorvastatin. Continue same. Code Status full code Discussed Condition With patient Problem Qualifiers (1) CAD (coronary artery disease): Qualified Codes: I25.110 - Atherosclerotic heart disease of squaxin coronary artery with unstable angina pectoris (2) HTN (hypertension): Qualified Codes: I10 - Essential (primary) hypertension (3) Hyperlipidemia: Qualified Codes: E78.5 - Hyperlipidemia, unspecified Garth Hood MD Jun 12, 2017 07:48
[2017-06-12] MEDS: INSULIN ASPART SUPPLEMENTAL SCALE SQ SCH ×2 (08:00→12:00)
[2017-06-12] MEDS: LISINOPRIL 5 MG TAB PO SCH (08:50)
[2017-06-12] MEDS: METOPROLOL TARTRATE 25 MG TAB PO SCH (08:50)
[2017-06-12] MEDS: SODIUM CHLORIDE FLUSH BID IV FLUSH SCH (08:51)
[2017-06-12] MEDS: GABAPENTIN 100 MG CAP PO SCH (08:51)
[2017-06-12] MEDS ORDERED: ASPIRIN 81 MG CHEW TAB PO SCH (09:00)
[2017-06-12] MEDS ORDERED: TICAGRELOR 90 MG TAB PO SCH (09:00)
[2017-06-12] MEDS ORDERED: BRIL90TA PO (11:35)
[2017-06-12] MEDS ORDERED: METF1000 PO (11:35)
--- NOTE | 2017-06-12 11:35 | HHI.DCPOC ---
Discharge Care Plan Diagnosis: (1) Diabetes (2) Non-ST elevation IN (NSTEMI) (3) Chest pain (4) CAD (coronary artery disease) (5) Hyperlipidemia (6) HTN (hypertension) Goals to Promote Your Health * To prevent worsening of your condition and complications * To maintain your health at the optimal level Directions to Meet Your Goals Take your medications as prescribed Follow your dietary instruction Follow activity as directed Keep your appointments as scheduled Take your immunizations and boosters as scheduled If your symptoms worsen call your PCP, if no PCP go to Urgent Care Center or Emergency Room Smoking is Dangerous to Your Health. Avoid second hand smoke Call the 24-hour hour crisis hotline for domestic abuse at Eric Kapoor MD Jun 12, 2017 11:35
[2017-06-12] MEDS ORDERED: ASPI81 PO (11:37)
--- NOTE | 2017-06-12 12:45 | HHI.DS ---
Discharge Summary Admission Date Jun 10, 2017 at 23:12 Discharge Date: Jun 12, 2017 Admitting Diagnosis (1) Chest pain ICD Code: R07.9 - Chest pain Diagnosis: Principal Status: Resolved (2) CAD (coronary artery disease) ICD Code: I25.10 - CAD (coronary artery disease) Diagnosis: Principal Status: Chronic (3) Diabetes ICD Code: E11.9 - Diabetes Diagnosis: Secondary Status: Chronic (4) Hyperlipidemia ICD Code: E78.5 - Hyperlipidemia Diagnosis: Secondary Status: Chronic (5) HTN (hypertension) ICD Code: I10 - HTN (hypertension) Diagnosis: Secondary Status: Chronic (6) Non-ST elevation GA (NSTEMI) ICD Code: I21.4 - Non-ST elevation GA (NSTEMI) Diagnosis: Principal Status: Acute Procedures Status post PCI with stent placement of the distal RCA. Brief History - From Admission This is a 72-year-old male with history of CAD with stents of the circumflex, hypertension, hyperlipidemia, and diabetes that presents to ED in [place] to be evaluated for chest discomfort and then was subsequently transferred via [facility] to the chest pain center. Describes a central chest pressure that radiates into his neck and arm that is brought on with activity lasting anywhere from a few minutes to about 20 minutes. The discomfort is relieved when he takes nitroglycerin or stopping the activity. He also has associated shortness of breath. Denies nausea or diaphoresis. States the discomfort that is brought on a similar to discomfort that has led to prior cardiac stenting. Currently denies chest discomfort. 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 and has an appointment end of the week. Upon reviewing her records, patient had a cardiac catheterization in 2013 revealed a 99% in-stent restenosis of the circumflex stent and had a another stent placed. Denies recent illness. Denies fevers or chills. CBC/BMP: 06/12/17 0449 06/12/17 0449 Significant Findings Laboratory Tests Test 06/11/17 00:01 06/11/17 03:00 06/12/17 04:49 Troponin I LESS THAN 0.02 NG/ML LESS THAN 0.02 NG/ML Red Blood Count 4.32 MIL/MM3 (4.50-5.90) Hematocrit 38.7 % (39.0-51.0) Random Glucose 109 MG/DL (74-106) Cholesterol Level 88 MG/DL (120-200) HDL Cholesterol 29.8 MG/DL (40.0-60.0) Imaging Chest x-ray on 06/10 showed no acute cardiopulmonary abnormality. PE at Discharge GENERAL: This is a well-nourished, well-developed patient, in no apparent distress. CARDIOVASCULAR: Regular rate and regular rhythm without murmurs, gallops, or rubs. RESPIRATORY: Clear to auscultation. Breath sounds equal bilaterally. No wheezes , rales, or rhonchi. GASTROINTESTINAL: Abdomen soft, non-tender, nondistended. Normal, active bowel sounds MUSCULOSKELETAL: Extremities without clubbing, cyanosis, or edema. NEURO: Alert & Oriented x4 to person, place, time, situation. Moves all ext x4 Pt update on day of discharge The patient denies chest pain or shortness of breath. The patient has been cleared by cardiology to be discharged home. Hospital Course The patient was admitted to the cardiac floor, monitor on telemetry. Patient had serial cardiac enzymes and EKG. Troponins were negative 3. EKG shows sinus rhythm with right bundle branch block and left anterior fascicular block. Given to the history been concerning for ischemia the patient was admitted and transferred to the main hospital at [facility] in [place]. Patient was evaluated by Dr. Palacios from cardiology who determined the symptoms were more consistent with unstable angina. The patient underwent catheterization on date for 06/11/17 with successful stenting of the distal RCA. Patient was then started on Brilinta. The patient was admitted and resumed on home medications including aspirin, statin, metoprolol, lisinopril. Oral diabetic medications were held including metformin and glipizide which were resumed on discharge. After cardiac catheterization the patient was started on Brilinta which will bring prescribed for the patient upon discharge. The patient was instructed to follow-up with his pole incisor operator in [place] on . Pt Condition on Discharge: Stable Discharge Disposition: Discharge Home Discharge Time: <= 30 minutes Discharge Instructions DIET: Follow Instructions for: Heart Healthy Diet, Diabetic Diet Activities you can perform: Regular-No Restrictions Activities to Avoid: Lifting/Bending, Strenuous Activity Follow up Referrals: Cardiology - 2-3 Days New Medications: Aspirin (Tgt Aspirin) 81 Mg Chw 81 MG PO DAILY for Blood Clot Prevention, #31 EA Ticagrelor (Brilinta) 90 Mg Tab 90 MG PO BID for Blood Clot Prevention, #62 TAB Changed Medications: Metformin (Metformin) 1,000 Mg Tab 1000 MG PO BIDPC for Blood Sugar Management, #60 TAB 0 Refills (Medication details modified) resume on 06/14 Continued Medications: Atorvastatin (Atorvastatin) 40 Mg Tab 40 MG PO HS for Cholesterol Management, #30 TAB 0 Refills Gabapentin (Gabapentin) 100 Mg Cap 100 MG PO BID, #60 CAP 0 Refills Glipizide (Glipizide) 5 Mg Tab 5 MG PO DAILY for Blood Sugar Management, #30 TAB 0 Refills Take 30 minutes before a meal Lisinopril (Lisinopril) 5 Mg Tab 5 MG PO DAILY for Blood Pressure Management, #30 TAB 0 Refills Metoprolol Tartrate (Metoprolol Tartrate) 25 Mg Tab 25 MG PO BID, #60 TAB 0 Refills Terazosin (Terazosin) 2 Mg Cap 2 MG PO HS, #30 CAP 0 Refills Eric Kapoor MD Jun 12, 2017 12:45
== END 2017-06-12 13:21 | disposition home or self-care (01) ==
LOC: NEDDLT 23:02 → NEPFCDU 23:12 → HCIS 06-11 15:00
PROVIDERS: ADMIT Hospitalist; ATTEND Hospitalist
DX: I25.110 Atherosclerotic heart disease of native coronary artery with unstable angina pectoris (principal); I21.4 Non-ST elevation (NSTEMI) myocardial infarction; I45.2 Bifascicular block; I10 Essential (primary) hypertension; E78.5 Hyperlipidemia, unspecified; E11.9 Type 2 diabetes mellitus without complications; Z79.84 Long term (current) use of oral hypoglycemic drugs; Z79.899 Other long term (current) drug therapy; Z95.5 Presence of coronary angioplasty implant and graft; Z87.891 Personal history of nicotine dependence; Z82.49 Family history of ischemic heart disease and other diseases of the circulatory system
CPT/HCPCS: 71046; 80048; 80061; 82550; 82552; 82948; 83735; 84484; 85002; 85025; 85610; 85730; 92928; 93005; 93458; 96361; 96365; 96366; 99152; 99153; 99285; C1725; C1769; C1874; C1887; C1893; G0378; J1644; J2250; J3010; J7030; J3246